=== PATIENT | male | born 1945 | race Caucasian/White ===

== ENCOUNTER 2023-04-15 10:45 | Inpatient (IN) | payer BC ==
[~2023-04-15] VITALS: Ht 162.6 cm; Wt 83.0 kg
[2023-04-15 10:53] VITALS: BP_SYST 137
--- NOTE | 2023-04-15 10:56 | NUR ---
SEEN BY ERMD. ORDERS NOTED. PLACED ON O2
[2023-04-15] MEDS ORDERED: NITROGLYCERIN 1 INCH (GM) OINT. TP ONE (11:00)
[2023-04-15] MEDS ORDERED: FUROSEMIDE 40 MG/4 ML VIAL IVP ONE ×2 (11:00→13:30)
[2023-04-15 11:18] LABS: BASOPHILS # (AUTO) 0.1 K/uL (0.0-0.2); BASOPHILS % (AUTO) 0.7 % (0.0-2.0); EOSINOPHILS # (AUTO) 0.1 K/uL (0.0-0.4); HEMATOCRIT 31.3 % (36-54); HEMOGLOBIN 10.5 g/dL (14.0-18.0); LYMPHOCYTES # (AUTO) 0.6 K/uL (1.0-5.5); LYMPHOCYTES % (AUTO) 7.8 % (20.5-51.5); MEAN CORPUSCULAR HEMOGLOBIN 28 pg (27-31); MEAN CORPUSCULAR HGB CONC 34 % (32-36); MEAN CORPUSCULAR VOLUME 82 fL (79.0-98.0); MONOCYTES # (AUTO) 0.8 K/uL (0.0-1.0); MONOCYTES % (AUTO) 10.4 % (1.7-9.3); NEUTROPHILS # (AUTO) 6.5 K/uL (1.8-7.7); NEUTROPHILS % (AUTO) 80.1 % (40.0-70.0); PLATELET COUNT (AUTO) 208 K/uL (130-430); RED BLOOD CELL COUNT(AUTO) 3.82 MIL/uL (4.2-6.2); RED CELL DISTRIBUTION WIDTH 13.6 % (9.0-15.0); WHITE BLOOD COUNT (AUTO) 8.1 K/uL (4.8-10.8)
[2023-04-15 11:35] LABS: ANION GAP 14 (5-15); CALCIUM 8.8 mg/dL (8.4-11.0); CHLORIDE 105 mmol/L (98-107); CREATININE 5.43 mg/dL (0.55-1.30); GLUCOSE 173 mg/dL (70-99); UREA NITROGEN, BLOOD 78 mg/dL (8-21)
[2023-04-15 11:42] LABS: ALANINE AMINOTRANSFERASE 18 U/L (12-78); ALBUMIN 3.2 g/dL (3.4-4.8); ASPARTATE AMINOTRANSFERASE 15 U/L (10-37); TOTAL BILIRUBIN 0.4 mg/dL (0.0-1.0)
--- NOTE | 2023-04-15 12:26 | NUR ---
PT RESTING. NAD. VSS. NO DYSPNEA AT PRESENT.
--- NOTE | 2023-04-15 12:40 | NUR ---
DR. BALLARD AT BS. SPOKE W/ DR. PENNINGTON. NO FURTHER ORDERS AT THIS TIME.
--- NOTE | 2023-04-15 13:19 | NUR ---
PT BECAME SEVERLY SOB AFTER TURNING TO RT SIDE TO URINATE IN URINAL WHILE LAYING ON GUERNEY. ER STAFF SUMMONED TO BS BY DAUGHTER. DR PENNINGTON AT BS. RT SUMMONED FOR BIPAP PLACEMENT.
[2023-04-15] MEDS ORDERED: ENALAPRILAT DIHYDRATE 1.25 MG/ML VIAL IVP ONE (13:30)
--- NOTE | 2023-04-15 14:04 | NUR ---
PT VSS AT PRESENT. PLACED ON BIPAP 08/28/35%, PT JONATAN WELL. Addendum: 04/15/23 at 1544 by [email or web address] BIPAP CORRECTION: %
[2023-04-15] MEDS ORDERED: cloNIDine HCL 0.1 MG TABLET PO PRN (14:30)
[2023-04-15] MEDS ORDERED: BUMEX 1 MG/4 ML VIAL IVP ONE (14:45)
[2023-04-15 14:49] LABS: INR 1.1 (0.80-1.20); PROTHROMBIN TIME 11.3 SECS (9.5-12.5)
--- NOTE | 2023-04-15 15:45 | NUR ---
PT RESTING AT THIS TIME. SON AT BS. DENIES PAIN OR CONCERNS. VSS.NAD. TO CONTINUE TO MONITOR.
--- NOTE | 2023-04-15 15:57 | NUR ---
RT AT BIPAP CHANGE-- 06/27/% PER DR. QUIROZ TO CONTINUE TO MONITOR.
--- NOTE | 2023-04-15 16:16 | NUR ---
TELE UNIT CALLED. SONIA MENDEZ ASSIGNED TO PT. TO REPORT AT BS UPON HER RETURN IN 15 MINUTES.
--- NOTE | 2023-04-15 16:50 | NUR ---
TO TELE 101B REPORT TO SONIA MUÑOZ.VSS
--- NOTE | 2023-04-15 17:40 | NUR ---
CONSULTATION PAGED REASON FOR CONSULTATION: SOB WAS CONSULT CALLED? Y PERSON WHO WAS NOTIFIED: BELKIS CONSULTING PHYSICIAN: BREANNA WELLS MEDIA MONITOR SPECIALTY: PULMONARY MEDIA MONITOR PHONE [phone]: REQUESTING PHYSICIAN: MALA REGAN
[2023-04-15 17:41] VITALS: BP_SYST 134
[2023-04-15 17:42] VITALS: BP_SYST 131
--- NOTE | 2023-04-15 17:44 | NUR ---
CONSULTATION PAGED REASON FOR CONSULTATION: CHF WAS CONSULT CALLED? Y PERSON WHO WAS NOTIFIED: TEXT MESSAGED A[place] CASTLE CONSULTING PHYSICIAN: [place] CASTLE FINANCIAL AID OFFICER SPECIALTY: CARDIO FINANCIAL AID OFFICER PHONE NUMBER: [phone] REQUESTING PHYSICIAN: MALA REGAN
[2023-04-15] MEDS ORDERED: BUMEX 1 MG/4 ML VIAL IVP SCH (18:00)
[2023-04-15] MEDS: BUMEX 1 MG/4 ML VIAL IVP SCH (18:11)
[2023-04-15 19:00] VITALS: BP_SYST 131
[2023-04-15 20:00] VITALS: BP_SYST 131
[2023-04-15] MEDS: NITROGLYCERIN 1 INCH (GM) OINT. TP SCH (20:51)
[2023-04-16] VITALS (7 sets, daily range): BP systolic 110–143
[2023-04-16] MEDS: BUMEX 1 MG/4 ML VIAL IVP SCH ×4 (00:05→18:36)
--- NOTE | 2023-04-16 03:55 | NUR ---
Consultation Paged Reason for Consultation: agusto Was consult called: Y Person who was notified: pt was seen by Dr. Anderson, as per his Progress Notes Consulting Physician: Toni Pate Ordering Physician: Glenna Rosales
[2023-04-16 05:06] LABS: BASOPHILS # (AUTO) 0.1 K/uL (0.0-0.2); BASOPHILS % (AUTO) 0.8 % (0.0-2.0); EOSINOPHILS # (AUTO) 0.2 K/uL (0.0-0.4); EOSINOPHILS % (AUTO) 2.7 % (0.0-4.0); HEMATOCRIT 31.3 % (36-54); HEMOGLOBIN 10.4 g/dL (14.0-18.0); LYMPHOCYTES # (AUTO) 0.6 K/uL (1.0-5.5); LYMPHOCYTES % (AUTO) 8.2 % (20.5-51.5); MEAN CORPUSCULAR HEMOGLOBIN 28 pg (27-31); MEAN CORPUSCULAR HGB CONC 33 % (32-36); MEAN CORPUSCULAR VOLUME 83 fL (79.0-98.0); MONOCYTES % (AUTO) 13.9 % (1.7-9.3); NEUTROPHILS # (AUTO) 5.3 K/uL (1.8-7.7); NEUTROPHILS % (AUTO) 74.4 % (40.0-70.0); PLATELET COUNT (AUTO) 207 K/uL (130-430); RED BLOOD CELL COUNT(AUTO) 3.77 MIL/uL (4.2-6.2); RED CELL DISTRIBUTION WIDTH 13.3 % (9.0-15.0); WHITE BLOOD COUNT (AUTO) 7.2 K/uL (4.8-10.8)
[2023-04-16 06:07] LABS: ALANINE AMINOTRANSFERASE 18 U/L (12-78); ALBUMIN 2.8 g/dL (3.4-4.8); ANION GAP 14 (5-15); ASPARTATE AMINOTRANSFERASE 15 U/L (10-37); CALCIUM 8.6 mg/dL (8.4-11.0); CHLORIDE 107 mmol/L (98-107); CREATININE 5.32 mg/dL (0.55-1.30); GLUCOSE 99 mg/dL (70-99); TOTAL BILIRUBIN 0.4 mg/dL (0.0-1.0); UREA NITROGEN, BLOOD 79 mg/dL (8-21)
--- NOTE | 2023-04-16 07:45 | NUR ---
Shaun Catheter Placement Procedure Scheduled For Today At Bedside: Dr. Anderson called HS/Staffing to schedule a Shaun Catheter placement procedure for today at bedside at 1100. The attending RN and Charge Nurse were notified. Procedure supplies were gathered and given to the patient's nurse. Attending nurse was instructed to follow through with informed consent, time out, and pull 5,000 cc Heparin for the procedure.
[2023-04-16] MEDS: NITROGLYCERIN 1 INCH (GM) OINT. TP SCH ×2 (08:02→22:14)
--- NOTE | 2023-04-16 09:45 | NUR ---
ATTENDING MD DR QUIROZ WAS CALLED, RE: PAIN MED FOR HEADACHE, PT IS NPO AND CANNOT TAKE ORAL MEDS. SPOKE TO SHASHANK.
[2023-04-16] MEDS ORDERED: HEPARIN SODIUM, PORCINE 10,000 UNITS/ 10 ML VIAL MC ONE (10:30)
--- NOTE | 2023-04-16 18:30 | NUR ---
Placement of HD catheter cancelled. Pt given renal diet but will be NPO again at midnight for permcath placement tomorrow. Pt UAL, voiding, and was able to wean pt down to 1L inwhich he was saturating 96%. Will continue to monitor.
[2023-04-17] MEDS: BUMEX 1 MG/4 ML VIAL IVP SCH ×3 (00:17→11:54)
[2023-04-17 01:07] VITALS: BP_SYST 144
[2023-04-17 05:11] LABS: BASOPHILS # (AUTO) 0.1 K/uL (0.0-0.2); BASOPHILS % (AUTO) 0.9 % (0.0-2.0); EOSINOPHILS # (AUTO) 0.2 K/uL (0.0-0.4); EOSINOPHILS % (AUTO) 3.1 % (0.0-4.0); HEMATOCRIT 32.8 % (36-54); HEMOGLOBIN 10.8 g/dL (14.0-18.0); LYMPHOCYTES # (AUTO) 0.6 K/uL (1.0-5.5); LYMPHOCYTES % (AUTO) 8.5 % (20.5-51.5); MEAN CORPUSCULAR HEMOGLOBIN 27 pg (27-31); MEAN CORPUSCULAR HGB CONC 33 % (32-36); MEAN CORPUSCULAR VOLUME 82 fL (79.0-98.0); MONOCYTES % (AUTO) 13.3 % (1.7-9.3); NEUTROPHILS # (AUTO) 5.4 K/uL (1.8-7.7); NEUTROPHILS % (AUTO) 74.2 % (40.0-70.0); PLATELET COUNT (AUTO) 246 K/uL (130-430); RED BLOOD CELL COUNT(AUTO) 3.99 MIL/uL (4.2-6.2); RED CELL DISTRIBUTION WIDTH 13.6 % (9.0-15.0); WHITE BLOOD COUNT (AUTO) 7.3 K/uL (4.8-10.8)
[2023-04-17 05:42] LABS: ALANINE AMINOTRANSFERASE 8 U/L (12-78); ALBUMIN 2.7 g/dL (3.4-4.8); ANION GAP 12 (5-15); ASPARTATE AMINOTRANSFERASE 14 U/L (10-37); CALCIUM 8.6 mg/dL (8.4-11.0); CHLORIDE 108 mmol/L (98-107); CREATININE 4.72 mg/dL (0.55-1.30); GLUCOSE 129 mg/dL (70-99); PHOSPHORUS 4.8 mg/dL (2.7-4.5); TOTAL BILIRUBIN 0.4 mg/dL (0.0-1.0); UREA NITROGEN, BLOOD 75 mg/dL (8-21)
[2023-04-17 07:46] VITALS: BP_SYST 149
[2023-04-17 08:00] VITALS: BP_SYST 149
[2023-04-17] MEDS: NITROGLYCERIN 1 INCH (GM) OINT. TP SCH ×2 (08:37→20:34)
[2023-04-17] MEDS ORDERED: ACETAMINOPHEN 325 MG TABLET PO ONE (10:30)
[2023-04-17] MEDS ORDERED: METOCLOPRAMIDE HCL 10 MG/2 ML VIAL IVP PRN (10:30)
[2023-04-17] MEDS ORDERED: METOPROLOL SUCCINATE 25 MG TAB.SR.24H (TOPROL XL) PO ONE (10:30)
[2023-04-17] MEDS ORDERED: MORPHINE 4 MG INJ. 4 MG/ML VIAL IVP PRN ×2 (10:30→11:30)
[2023-04-17] MEDS ORDERED: CEFAZOLIN 1 GM IVPB PREMIX 50 ML IV ONE (11:25)
[2023-04-17] MEDS ORDERED: WATER FOR IRRIGATION,STERILE 1,000 ML IRRIG.SOLN IR ONE (11:25)
[2023-04-17] MEDS ORDERED: HEPARIN SODIUM,PORCINE 5,000 UNITS/ML VIAL ONE ×2 (11:25→16:35)
[2023-04-17] MEDS ORDERED: NS IRRIG SOLN 1000 ML IR ONE (11:25)
[2023-04-17] MEDS ORDERED: MIDAZOLAM HCL 5 MG/ML VIAL (VERSED) IV ONE (11:25)
[2023-04-17] MEDS ORDERED: KETOROLAC TROMETHAMINE 30 MG VIAL ONE (11:25)
[2023-04-17] MEDS ORDERED: LR 1,000 ML IV.SOLN IV ONE (11:25)
[2023-04-17] MEDS ORDERED: LIDOCAINE 1% 10 MG/ML, 20 ML MDV ONE (11:25)
[2023-04-17] MEDS ORDERED: NS 100 ML BAG ONE (11:25)
[2023-04-17] MEDS ORDERED: HYDROcodone/ACETAMIN 5-325 MG TAB (NORCO/ VICODIN) PO PRN (11:30)
[2023-04-17 11:35] VITALS: BP_SYST 151
[2023-04-17 15:11] VITALS: BP_SYST 138
--- NOTE | 2023-04-17 18:04 | NUR ---
Pt received HD placement today. No c/o pain. Renal diet resumed. Dialysis at bedside.
--- NOTE | 2023-04-17 20:00 | NUR ---
INITIAL NOTES: endorsed pt. still on Hemodialysis, came in for shortness of breath with DX CHF/Renal failure. on monitoring coordinator and shows sinus rhythm. permacath on left upper chest for HD access. IV lock on rt. wrist area. on O2 @ 1 liter/per nasal canula. call light at bedside.
[2023-04-17 20:30] VITALS: BP_SYST 136
--- NOTE | 2023-04-17 20:33 | NUR ---
NOTES: pt. c/o pain on his permacath site left and rt. side, medicated with Nenzel po. HOB elevated.
[2023-04-17] MEDS ORDERED: ATORVASTATIN 20 MG TABLET PO SCH (21:00)
[2023-04-18] VITALS (7 sets, daily range): BP systolic 141–149
--- NOTE | 2023-04-18 00:20 | NUR ---
NOTES: due medications given. IV site leaking and fixed it, new dressing applied, IV was kinked.
[2023-04-18] MEDS: BUMEX 1 MG/4 ML VIAL IVP SCH ×3 (00:22→11:47)
--- NOTE | 2023-04-18 04:15 | NUR ---
NOTES: checked pt. lead came off. pt. ambulated to the restroom and voided. off sequentials.
[2023-04-18 04:46] LABS: BASOPHILS # (AUTO) 0.1 K/uL (0.0-0.2); EOSINOPHILS # (AUTO) 0.4 K/uL (0.0-0.4); EOSINOPHILS % (AUTO) 5.8 % (0.0-4.0); HEMATOCRIT 35.7 % (36-54); HEMOGLOBIN 11.8 g/dL (14.0-18.0); LYMPHOCYTES % (AUTO) 13.2 % (20.5-51.5); MEAN CORPUSCULAR HEMOGLOBIN 27 pg (27-31); MEAN CORPUSCULAR HGB CONC 33 % (32-36); MEAN CORPUSCULAR VOLUME 83 fL (79.0-98.0); MONOCYTES # (AUTO) 0.9 K/uL (0.0-1.0); MONOCYTES % (AUTO) 12.3 % (1.7-9.3); NEUTROPHILS # (AUTO) 5.2 K/uL (1.8-7.7); NEUTROPHILS % (AUTO) 67.7 % (40.0-70.0); PLATELET COUNT (AUTO) 228 K/uL (130-430); RED CELL DISTRIBUTION WIDTH 13.5 % (9.0-15.0); WHITE BLOOD COUNT (AUTO) 7.6 K/uL (4.8-10.8)
[2023-04-18 05:04] LABS: ANION GAP 14 (5-15); CALCIUM 8.7 mg/dL (8.4-11.0); CHLORIDE 105 mmol/L (98-107); CREATININE 3.65 mg/dL (0.55-1.30); GLUCOSE 104 mg/dL (70-99); UREA NITROGEN, BLOOD 53 mg/dL (8-21)
--- NOTE | 2023-04-18 06:45 | NUR ---
CLOSING NOTES; pt. sleeping. IV site patent. no further complaints. for further assistance. will endorse to incoming shift. call light at bedside. O2 kept @ 1 liter/nc.
--- NOTE | 2023-04-18 08:00 | NUR ---
Initial notes alert, eating breakfast. Denies any chest pain or shortness of breath at rest. On o2 1l. will have dialysis again today. family at bedside. call light within reach. enc to call for help as needed.
[2023-04-18] MEDS: NITROGLYCERIN 1 INCH (GM) OINT. TP SCH (08:59)
[2023-04-18] MEDS ORDERED: METOPROLOL SUCCINATE 25 MG TAB.SR.24H (TOPROL XL) PO SCH (09:00)
[2023-04-18] MEDS ORDERED: calcitrioL 0.25 MCG CAPSULE PO ONE (10:30)
--- NOTE | 2023-04-18 10:30 | NUR ---
MD ROUNDS DR. QUIROZ SEEN PATIENT AND ORDERED TO DISCHARGE PATIENT AFTER DIALYSIS TODAY. ALREADY CALLED [facility] FOR OUTPATIENT DIALYSIS. MD SPOKE TO FAMILY AT BEDSIDE.
--- NOTE | 2023-04-18 10:58 | NUR ---
Labs- Called lab and follow up about hepatitis panel and quanteferon TB gold, per lab they will draw it around 3pm since it time sensitive,when lab thomas comes.
[2023-04-18] MEDS ORDERED: SEVELAMER CARBONATE 800 MG TABLET PO SCH (12:00)
[2023-04-18] MEDS ORDERED: NEPH PO (12:06)
[2023-04-18] MEDS ORDERED: METO25TA6 PO (12:06)
[2023-04-18] MEDS ORDERED: CALC0.258 PO (12:06)
--- NOTE | 2023-04-18 12:13 | NUR ---
NOTE- PT IS ON DIALYSIS AT THIS TIME.
--- NOTE | 2023-04-18 12:34 | NUR ---
NOTES- O2 SAT IS 94% IN ROOM AIR.
--- NOTE | 2023-04-18 14:00 | NUR ---
NOTES-SPOKE TO SENIOR ENVIRONMENTAL PRACTICE LEADER ABOUT RENAL DIET INFO FO PATIENT.
--- NOTE | 2023-04-18 14:49 | NUR ---
NOTES- DIALYSIS DONE, WAITING FOR THE LAB TO DRAW BLOOD BEFORE PATIENT DISCHARGE.
--- NOTE | 2023-04-18 14:51 | NUR ---
CORE MEASURES- CALLED DR. BALLARD OFFICE. EXCHANGE STATED TO CALL ON FRIDAY FOR APPOINTMENT. WILL ADVISE PATIENT AND FAMILY.
--- NOTE | 2023-04-18 15:18 | NUR ---
NOTES-[facility] CALLED AND VERIFYING FOR DISCHARGE. MADE THEM AWARE THAT THEY HAVE TO DRAW THE HEPATITIS PANEL AND TB GOLD FIRST AND THE HE CAN GO HOME PER DR. QUIROZ. PATIENT ALREADY HAVE DIALYSIS SCHEDULED TOMORROW AT 12:15 PER STAFF AND TO ADVISE [PATIENT TO ARRIVED AT 11AM TO FILL UP PAPER WORK. PATIENT AND FAMILY MADE AWARE.
--- NOTE | 2023-04-18 16:47 | NUR ---
Nutrition Education RD provided nutrition education on the topics of renal/dialysis MNT. Please refer to interdisciplinary teaching record for details.
--- NOTE | 2023-04-18 17:06 | NUR ---
DISCHARGE HOME, DENIES ANY PAIN OT SHORTNESS OF BREATH. AMBULATE WITH SUPERVISION. DISCHARGE INSTRUCTION, MEDICATIONS AND FOLLOW UP DISCUSSED WITH PATIENT AND SON. VERBALIZE UNDERSTANDING. SPOKE AGAIN TO JOSÉ MANUEL AT DIALYSIS CENTER AND AWARE OF PENDING RESULT FOR HEP PANEL AND TB GOLD, JOSÉ MANUEL SAYS IT OK. IVL AND ARM BAND REMOVED.
[2023-04-19 08:07] LABS: HEPATITIS A AB, IgM Negative (Negative); HEPATITIS B CORE AB, IgM Negative (Negative); HEPATITIS B SURFACE AG Negative (Negative)
[2023-04-19] MEDS ORDERED: calcitrioL 0.25 MCG CAPSULE PO SCH (09:00)
[2023-04-19] MEDS ORDERED: NEPHROVITE, (FOLIC ACID/VITAMIN B COMP W-C 1 TAB) PO SCH (09:00)
== END 2023-04-18 17:04 | disposition home or self-care (01) | DRG 673 ==
LOC: SED 10:45 → STU 14:18
PROVIDERS: ADMIT Specialist; ATTEND Specialist
PROC: 5A09357 Assistance with Respiratory Ventilation, Less than 24 Consecutive Hours, Continuous Positive Airway Pressure (ICD-10-PCS; 2023-04-15)
PROC: 5A09357 Assistance with Respiratory Ventilation, Less than 24 Consecutive Hours, Continuous Positive Airway Pressure (ICD-10-PCS; 2023-04-16)
PROC: 0JH63XZ Insertion of Tunneled Vascular Access Device into Chest Subcutaneous Tissue and Fascia, Percutaneous Approach (ICD-10-PCS; 2023-04-17)
PROC: 02HV33Z Insertion of Infusion Device into Superior Vena Cava, Percutaneous Approach (ICD-10-PCS; 2023-04-17)
PROC: B518ZZA Fluoroscopy of Superior Vena Cava, Guidance (ICD-10-PCS; 2023-04-17)
PROC: B548ZZA Ultrasonography of Superior Vena Cava, Guidance (ICD-10-PCS; 2023-04-17)
PROC: 5A1D70Z Performance of Urinary Filtration, Intermittent, Less than 6 Hours Per Day (ICD-10-PCS; 2023-04-17)
PROC: 05JYXZZ Inspection of Upper Vein, External Approach (ICD-10-PCS; principal; 2023-04-17 09:52)
PROC: 5A1D70Z Performance of Urinary Filtration, Intermittent, Less than 6 Hours Per Day (ICD-10-PCS; 2023-04-18)
DX: N17.9 Acute kidney failure, unspecified (principal); J96.01 Acute respiratory failure with hypoxia; N18.6 End stage renal disease; I11.0 Hypertensive heart disease with heart failure; I50.9 Heart failure, unspecified; E11.22 Type 2 diabetes mellitus with diabetic chronic kidney disease; E78.5 Hyperlipidemia, unspecified; D63.1 Anemia in chronic kidney disease; Z20.822 Contact with and (suspected) exposure to COVID-19
CPT/HCPCS: 36415; 71045; 76000; 76770; 76937; 80048; 80053; 80074; 83880; 83970; 84100; 84484; 85025; 85610-TC; 85730-TC; 86480; 87081; 90935; 90937; 93005; 94660; 94760; 96374; 96375; 96376; 99285; C1750; G0378; J0690; J1644; J1885; J1940; J2001; J2250; J3490; J7120